=== PATIENT | female | born 1955 | race Hispanic/Latino ===

== ENCOUNTER → 2025-04-26 | Outpatient (CLI) | payer MEDICARE ==
[~2025-04-26] MED LIST: IOHEXOL 350 MG/ML 100ML INFUS..BTL IV ONE
--- NOTE | 2025-04-27 10:46 | HMCIMG ---
EXAM: CTA examination of the chest CLINICAL HISTORY: Primary hypertension. TECHNIQUE: Thin collimated axial CTA images of the chest were obtained with sagittal and coronal reformatted images also submitted. CT scan done according to ALARA (As Low as Reasonably Achievable). CONTRAST USED: Omnipaque 350, 100ml. COMPARISON: X-ray dated November 05, 2016. FINDINGS: Mild atelectasis in the lingula and both lower lobes. No pulmonary nodules. No pleural effusions. No pericardial effusion. Mild cardiomegaly with coronary arterial disease. Atherosclerosis in the aorta with aberrant origin of the right subclavian artery. Few atherosclerotic plaques in the descending thoracic aorta. No thoracic aortic aneurysm or dissection. No pulmonary thromboembolism. No axillary, supraclavicular, or mediastinal lymphadenopathy. No focal thyroid abnormality. Limited views of the upper abdomen demonstrate cholelithiasis and fatty liver. The bones under view show degenerative spondylotic changes in the spine with sternotomy sutures in situ. IMPRESSION: No pulmonary embolism. No thoracic aortic aneurysm or dissection. Cardiomegaly with atherosclerosis and few atherosclerotic plaques in the descending thoracic aorta. Coronary arterial disease and aberrant origin of the right subclavian artery. No pulmonary infiltrates or pleural effusions. Mild atelectasis in the lingula and both lower lobes. Gallstones. Fatty liver. /[place]
== END | disposition home or self-care (01) ==
LOC: RAH 10:53
PROVIDERS: ATTEND Internal Medicine Cardiovascular Disease
DX: I11.9 Hypertensive heart disease without heart failure (principal); I70.0 Atherosclerosis of aorta; I25.10 Atherosclerotic heart disease of native coronary artery without angina pectoris; K80.20 Calculus of gallbladder without cholecystitis without obstruction; K76.0 Fatty (change of) liver, not elsewhere classified; J98.11 Atelectasis; I77.9 Disorder of arteries and arterioles, unspecified
CPT/HCPCS: 71275; Q9967